=== PATIENT | male | born 1955 | race Caucasian/White ===

== ENCOUNTER 2016-08-08 07:58 | Day surgery (SDC) | payer MEDICARE, OTHER ==
[~2016-08-08 07:58] MED LIST: LACTATED RINGERS 1,000 ML IV ONE
[2016-08-08] MEDS ORDERED: LIDOCAINE-PF 2% 10 ML AMP SUBQ ONE (09:45)
[2016-08-08] MEDS ORDERED: PROPOFOL 200 MG/20 ML VIAL IVP ONE (09:45)
== END 2016-08-08 07:59 | disposition home or self-care (01) ==
PROC: 0DJD8ZZ Inspection of Lower Intestinal Tract, Via Natural or Artificial Opening Endoscopic (ICD-10-PCS; principal; 2016-08-08 07:30)
DX: Z12.11 Encounter for screening for malignant neoplasm of colon (principal); Z86.010 Personal history of colon polyps; K64.8 Other hemorrhoids; I10 Essential (primary) hypertension; G47.30 Sleep apnea, unspecified; G62.9 Polyneuropathy, unspecified; Z98.1 Arthrodesis status; F17.210 Nicotine dependence, cigarettes, uncomplicated; K21.0 Gastro-esophageal reflux disease with esophagitis; E78.2 Mixed hyperlipidemia; G47.33 Obstructive sleep apnea (adult) (pediatric); I70.209 Unspecified atherosclerosis of native arteries of extremities, unspecified extremity; J44.9 Chronic obstructive pulmonary disease, unspecified; Z79.82 Long term (current) use of aspirin; Z88.5 Allergy status to narcotic agent; Z83.3 Family history of diabetes mellitus
CPT/HCPCS: G0105; J7120

== ENCOUNTER 2016-11-08 00:11 | Emergency (ER) | payer MEDICARE, OTHER ==
[2016-11-08 00:31] VITALS: BP 151/84
--- NOTE | 2016-11-08 01:52 | XRAY Preliminary Report ---
Exam: XR Foot 3 View LT IMPRESSION: Old soft tissue swelling without evident acute displaced fracture. [facility] SITE ID: [id number]
--- NOTE | 2016-11-08 01:55 | XRAY Report ---
EXAM: LEFT FOOT RADIOGRAPHY EXAM DATE: 11/08/2016 01:18 AM. CLINICAL HISTORY: Dropped a shelf on 1st digit at 10 PM. Great toe pain COMPARISON: None. TECHNIQUE: 3 views. FINDINGS: Bones: No acute displaced fracture or definite suspicious bony lesion. Large retrocalcaneal enthesoph yte. Joints: Severe first MTP degenerative change. There is also severe degenerative change of the fifth P IP joint. Soft Tissues: Mild soft tissue swelling. IMPRESSION: Old soft tissue swelling without evident acute displaced fracture. [facility] Referring Provider Line: [phone] SITE ID: [id number]
--- NOTE | 2016-11-08 02:37 | ED Physician Documentation ---
PD HPI LOWER EXT INJURY - Stated complaint Stated Complaint: L FOOT PX - Chief complaint Chief Complaint: Ext Problem - History obtained from History obtained from: Patient, Family - History of Present Illness PD HPI LOW EXT INJURY LOCATION: Left Type of injury: Blunt / blow Where injury occurred: Home Timing - onset: How many hours ago (1) Timing - details: Abrupt onset Improved by: Immobilization Worsened by: Moving, Palpating Associated symptoms: Swelling Similar symptoms before: Has not had sx before Recently seen: Not recently seen - Additional information Additional information: Patient is a 60 year old male who is presenting to the emergency department for foot pain. Patient states that he dropped an empty drawer on his foot. he states that the corner hit him just on the large toe. Patient denies any other trauma. Review of Systems Constitutional: denies: Fever, Chills Ears: denies: Ear pain Nose: denies: Rhinorrhea / runny nose, Congestion Throat: denies: Dental pain / toothache Cardiac: denies: Chest pain / pressure GI: denies: Nausea, Vomiting Musculoskeletal: reports: Extremity pain, Joint pain, Extremity swelling, Joint swelling Neurologic: denies: Generalized weakness, Focal weakness, Numbness Immunocompromised: denies: Immunocompromised PD PAST MEDICAL HISTORY - Past Medical History Past Medical History: Yes Cardiovascular: Hypertension, High cholesterol, Peripheral Vascular Disease Respiratory: COPD, Emphysema, Sleep apnea, CPAP use Neuro: Peripheral neuropathy Endocrine/Autoimmune: None GI: GERD, Colon polyps, Diverticulitis : Benign prostate hypertrophy HEENT: Chronic vision loss Psych: None Musculoskeletal: Chronic back pain Derm: None - Past Surgical History Past Surgical History: Yes General: Colonoscopy Ortho: Carpal Tunnel surgery, Spine surgery Cardiovascular: Fempop bypass - Present Medications Home Medications: Ambulatory Orders Medication Instructions Recorded Confirmed Allopurinol [Zyloprim] 100 mg PO DAILY PRN 09/05/12 07/29/16 Lisinopril/Hydrochlorothiazide 1 each PO DAILY 09/05/12 07/29/16 [Lisinopril-Hctz 20-25 mg Tab] Multivitamin [Multivitamins] 1 each PO DAILY 09/05/12 08/08/16 Omeprazole [Prilosec] 20 mg PO DAILY 09/05/12 07/29/16 Pregabalin [Lyrica] 100 mg PO TID 09/05/12 08/08/16 Simvastatin [Zocor] 20 mg PO HS 09/05/12 08/08/16 Albuterol [Proventil Hfa] 1 puffs INH QID 09/23/12 07/29/16 Cyclobenzaprine [Flexeril] 20 mg PO TID PRN 09/23/12 07/29/16 Mupirocin [Bactroban] 22 gm TP DAILY 09/23/12 07/29/16 Tadalafil [Cialis] 20 mg PO PRN PRN 09/23/12 07/29/16 Oxycodone HCl/Acetaminophen 1 - 2 each PO Q6H PRN #15 tablet 05/21/14 07/29/16 [Percocet 5-325 mg Tablet] oxyCODONE [Roxicodone] 1 - 2 tab PO QID PRN 05/21/14 07/29/16 Aspirin [Aspirin EC] 81 mg PO DAILY 07/29/16 07/29/16 Diazepam 5 mg PO DAILY PRN 07/29/16 07/29/16 Hydrocodone/Acetaminophen 1 each PO DAILY 07/29/16 07/29/16 [Hydrocodon-Acetaminoph 7.5-325] Tramadol HCl 50 mg PO DAILY PRN 07/29/16 07/29/16 - Allergies Allergies/Adverse Reactions: Allergies Allergy/AdvReac Type Severity Reaction Status Date / Time codeine [Codeine] Allergy Intermediate Rash Verified 11/08/16 00:31 gabapentin Allergy Intermediate Rash Verified 11/08/16 00:31 - Social History Does the pt smoke?: Yes Smoking Status: Current every day smoker Does the pt drink ETOH?: Yes Does the pt have substance abuse?: No - Immunizations Immunizations are current?: Yes - POLST Patient has POLST: No PD ED PE NORMAL - General General: Alert and oriented X 3, No acute distress - HEENT HEENT: Atraumatic, PERRL - Neck Neck: Supple, no meningeal sign - Cardiac Cardiac: RRR, No murmur - Abdomen Abdomen: Soft - Derm Derm: Normal color, Warm and dry - Neuro Neuro: Alert and oriented X 3, No motor deficit, No sensory deficit, Normal speech - Psych Psych: Normal affect PD ED PE EXPANDED - Extremities Extremities: Right toe(s) Results - Vitals Vitals: Vital Signs - 24 hr 11/08/16 00:29 Temperature 36.5 C Heart Rate 97 Respiratory 17 Rate Blood Pressure 151/84 H O2 Saturation 98 Oxygen O2 Source Room air - Rads (name of study) x-ray foot Radiology: Final report received (no acute fracture or dislocation) PD MEDICAL DECISION MAKING - ED course Complexity details: reviewed old records, reviewed results, re-evaluated patient , d/w patient ED course: Patient was seen and examined at bedside. Patient was sent for imaging. when patient returned the films were reviewed. there was no acute fracture or dislocation. Patient was placed in a hard soled shoe and was stable for discharge with outpatient follow up. Departure - Departure Disposition: Home, Self Care Clinical Impression: Contusion of left foot Condition: Good Instructions: ED Contusion Lower Ext Follow-Up: primary,care provider [Other] - As Needed Comments: Your diagnostics today were within normal limits. there is no acute fracture or dislocation. You should take nsaid or tylenol for pain and ice the area at least 4 times a day. You can return to the emergency department at any time for new, worsening or uncontrollable symptoms. Discharge Date/Time: 11/08/16 02:45
== END 2016-11-08 02:45 | disposition home or self-care (01) ==
LOC: ED 00:11
DX: S90.32XA Contusion of left foot, initial encounter (principal); W22.8XXA Striking against or struck by other objects, initial encounter; Y92.019 Unspecified place in single-family (private) house as the place of occurrence of the external cause; I10 Essential (primary) hypertension; E78.00 Pure hypercholesterolemia, unspecified; I73.9 Peripheral vascular disease, unspecified; J44.9 Chronic obstructive pulmonary disease, unspecified; G47.30 Sleep apnea, unspecified; G62.9 Polyneuropathy, unspecified; K21.9 Gastro-esophageal reflux disease without esophagitis; N40.0 Benign prostatic hyperplasia without lower urinary tract symptoms; Z86.010 Personal history of colon polyps; F17.200 Nicotine dependence, unspecified, uncomplicated
CPT/HCPCS: 99283

== ENCOUNTER 2017-07-28 13:56 | Outpatient (CLI) | payer MEDICARE, OTHER | END 2017-07-28 13:57 | disposition home or self-care (01) | LOC: SC 13:56 | PROVIDERS: ATTEND Internal Medicine Pulmonary Disease | DX: G47.33 Obstructive sleep apnea (adult) (pediatric) (principal) | CPT/HCPCS: 99203; G0463; 99212 ==

== ENCOUNTER 2017-09-23 10:53 | Outpatient (CLI) | payer MEDICARE, OTHER ==
--- NOTE | 2017-09-24 15:14 | XRAY Report ---
Procedure Date: 09/23/2017 Accession Number: [id number] / [id number] Procedure: XR - Knee 3 View RT CPT Code: FULL RESULT: EXAM: RIGHT KNEE RADIOGRAPHY EXAM DATE: 09/23/2017 11:33 AM. CLINICAL HISTORY: Knee pain COMPARISON: None. TECHNIQUE: 3 views. FINDINGS: Bones: No fracture or focal bony lesion. Joints: No evidence of dislocation. There are small patellofemoral compartment marginal osteophytes. No evidence of significant joint effusion. Soft Tissues: No unexpected soft tissue findings. IMPRESSION: No fracture, dislocation, or significant degenerative disease [facility]
== END 2017-09-23 10:54 | disposition home or self-care (01) ==
LOC: DI 10:53
PROVIDERS: ATTEND Family Medicine
DX: M25.561 Pain in right knee (principal)

== ENCOUNTER 2017-10-05 09:20 | Outpatient (CLI) | payer MEDICARE, OTHER | END 2017-10-05 09:21 | disposition home or self-care (01) | LOC: SC 09:20 | PROVIDERS: ATTEND Internal Medicine Pulmonary Disease | DX: G47.33 Obstructive sleep apnea (adult) (pediatric) (principal) | CPT/HCPCS: 99213; G0463; 99212 ==

== ENCOUNTER 2018-11-24 15:56 | Outpatient (CLI) | payer MEDICARE, OTHER ==
[2018-11-24 16:45] VITALS: BP 134/70
--- NOTE | 2018-11-24 16:45 | SLEEP CARE CONSULTATION ---
Information from patient questionnaire entered by Ivania Villalpando. I have reviewed and concur with the information entered by Ivania Villalpando. This document represents the service I personally performed and the decisions made by me, Katy Dasilva, RN, MSN, PHOTOENGRAVING PHOTOGRAPHER. History of Present Illness Previous diagnosis: Severe, Obstructive Sleep Apnea-Hypopnea Syndrome AHI: 30.7 Reason for CPAP/BiPAP follow up: annual Equipment type: CPAP Equipment obtained from: [employer] (having difficulty getting supplies / so has researched other companies to use and chose [place]) Mask style: Nasal Mask brand: Resmed Backup mask available: Yes Last cushion change: 3 months ago due to difficulty getting supplies CPAP Compliance Data - Data Reviewed with Patient Average duration of nightly device use: 7.95 Compliance rate %: 98 (180 days) Current pressure setting (cmH2O): 5-8 Average residual AHI: 0.9 Average large leak: 7.1 liters a minute Subjective Missed days of use due to: reports: other (falling asleep without) Patient concerns: reports: air blowing in eyes (rare), nasal congestion, other (ear pressure about 1-2 times a week and generally occurs when congested. ). denies: aerophagia, mask discomfort, mask leak noise, condensation in mask/hose (intermittent if humidity not accurate for weather), dry mouth, nose, throat, epistaxis Observed to snore while using device: No On therapy, patient: reports: sleeping better, awakening more refreshed, being more awake and alert during the day, more rested overall. denies: drowsiness while driving Initial [place] Sleepiness Scale score: 10 Current [place] Sleepiness Scale score: 7 Allergies and Home Medications Known drug allergies: Yes (codiene - rash; gabapentin - hives + very high temperature) Home medication list reviewed: Yes Allergy and home medication list: Hydrochlorothiazide-Lisinopril 25-20mg tab one daily atorvastatin 20mg tab one daily Omeprazole DR 20mg cap one daily EpiPen Micah 0.3mg injectable kit Use as directed Cialis 20mg tab PRN [place] 325-7.5mg tab one every 8 hours PRN Indomethacin 50mg cap on three times daily Proventil HFA 108 (90 base) mcg/act Inhale one-two puffs daily Lyrica 100mg cap twice times daily Diazepam 5mg tab one-two every 8 hours PRN Cyclobenzaprine 10mg tab one every 8 hours PRN Tramadol HCI 50mg tab one every 8 hours PRN Percocet 5mg tab one PRN Review of Systems Review of systems same as previous: Yes Physical Exam Blood Pressure: 134/70 Cuff size: long Heart Rate: 82 O2 Saturation: 98 Height: 5 ft 11 in Weight (kg): 120.656 kg Body Mass Index: 37.0 BMI Classification: Class 2 Impression and Plan 1. Obstructive Sleep Apnea-Hypopnea Syndrome, severe, with good treatment compliance and good apnea control. On CPAP therapy, the patient has better sleep quality and is more rested overall. For his intermittent ear pressure a couple times a month when has nasal congestion, I will reduce autoCPAP pressure to 5-7cmH20. He is to contact me if any pressure discomfort. If he continues weight loss, his CPAP pressure may need to be reduced further if significant weight loss. Patient aware to contact this office. For his supply concerns, I will make a DW0 prescription to transfer to [facility]. If continued supply problems, he was notified he can transfer again. Patient's apnea severity and rationale for treatment to reduce apnea, improve sleep quality and reduce cardiovascular and cerebrovascular events was reviewed. I also reviewed the benefit of consistent device use of CPAP for hypertension and pain management. He has noted benefit to pain management and requires less pain pills since CPAP use. He was also praised for smoking cessation progress and discussed benefits to hypertension and overall health. * Transfer to [facility] * Change CPAP pressure to 5-7 cmH2O - done in office * Notify me if snoring with mask or feeling that the pressure is too much or too little * Attempt to lose weight * Continue to work on smoking cessation. * Return for follow up in 1 year, or sooner if concerns arise I spent 100% of this 30 minute visit face to face with the patient with greater than 50% of this was spent time counseling the patient and coordination of care.
== END 2018-11-24 15:57 | disposition home or self-care (01) ==
LOC: SC 15:56
PROVIDERS: ATTEND Nurse Practitioner Family
DX: G47.33 Obstructive sleep apnea (adult) (pediatric) (principal)
CPT/HCPCS: 99214; G0463; 99212

== ENCOUNTER 2019-01-24 23:22 | Emergency (ER) | payer MEDICARE, OTHER ==
[2019-01-24 23:55] LABS: BASOPHILS % (AUTO) 0.5 %; EOSINOPHILS # (AUTO) 0.1 10^3/uL (0.0-0.7); EOSINOPHILS % (AUTO) 1.2 %; HGB - HEMOGLOBIN 13.8 g/dL (14.0-18.0); LYMPHOCYTES # (AUTO) 2.7 10^3/uL (1.5-3.5); MEAN CORPUSCULAR HEMOGLOBIN 29.3 pg (27.0-31.0); MEAN CORPUSCULAR HGB CONC 33.4 g/dL (32.0-36.0); MEAN CORPUSCULAR VOLUME 87.7 fL (80.0-94.0); MEAN PLATELET VOLUME 10.7 fL (7.4-11.4); MONOCYTES # (AUTO) 0.7 10^3/uL (0.0-1.0); MONOCYTES % (AUTO) 9.4 %; NEUTROPHILS # (AUTO) 3.9 10^3/uL (1.5-6.6); NEUTROPHILS % (AUTO) 52.5 %; PLT - PLATELET COUNT 162 10^3/uL (130-450); RED BLOOD COUNT 4.71 10^6/uL (4.70-6.10); RED CELL DISTRIBUTION WIDTH 13.5 % (12.0-15.0); WHITE BLOOD COUNT 7.4 x10^3/uL (4.8-10.8)
[2019-01-25 00:02] LABS: ALBUMIN 4.6 g/dL (3.2-5.5); ALBUMIN/GLOBULIN RATIO 1.6 (1.0-2.2); BILIRUBIN,TOTAL 0.6 mg/dL (0.2-1.0); CALCIUM 9.4 mg/dL (8.5-10.3); CREATININE 0.9 mg/dL (0.6-1.2); TOTAL PROTEIN 7.5 g/dL (6.7-8.2)
--- NOTE | 2019-01-25 00:07 | ED Physician Documentation ---
PD HPI CHEST PAIN - Stated complaint Stated Complaint: STROKE LIKE SYMP - Chief complaint Chief Complaint: Cardiac - History obtained from History obtained from: Patient - History of Present Illness Timing - onset: How many hours ago (3) Timing - onset during: Rest Timing - duration: Hours (3) Timing - details: Abrupt onset, Still present Quality: Pressure, Tightness. No: Sharp Location: Substernal, Epigastric Radiation: Neck Improved by: No: Rest Worsened by: No: Exertion, Inspiration Associated symptoms: Nausea, Feeling faint / dizzy. No: Shortness of air, Palpitations Similar symptoms before: No diagnosis (had similar symptoms the past several days, nonexertional, lasting minutes to half hour or so.) Recently seen: Not recently seen Review of Systems Constitutional: denies: Fever, Chills Nose: denies: Rhinorrhea / runny nose, Congestion Throat: denies: Sore throat Cardiac: reports: Chest pain / pressure. denies: Palpitations, Pedal edema, Calf pain Respiratory: denies: Dyspnea, Cough GI: denies: Abdominal Pain, Nausea, Vomiting, Diarrhea Musculoskeletal: denies: Extremity swelling PD PAST MEDICAL HISTORY - Past Medical History Past Medical History: Yes Cardiovascular: Hypertension, High cholesterol, Peripheral Vascular Disease Respiratory: COPD, Emphysema, Sleep apnea, CPAP use Neuro: None Endocrine/Autoimmune: None GI: GERD, Colon polyps, Diverticulitis : Benign prostate hypertrophy HEENT: Chronic vision loss Psych: None Musculoskeletal: Chronic back pain Derm: None - Past Surgical History Past Surgical History: Yes General: Colonoscopy Ortho: Carpal Tunnel surgery, Spine surgery Cardiovascular: Fempop bypass - Present Medications Home Medications: Ambulatory Orders Medication Instructions Recorded Confirmed Allopurinol [Zyloprim] 100 mg PO DAILY PRN 09/05/12 07/29/16 Lisinopril/Hydrochlorothiazide 1 each PO DAILY 09/05/12 07/29/16 [Lisinopril-Hctz 20-25 mg Tab] Multivitamin [Multivitamins] 1 each PO DAILY 09/05/12 08/08/16 Omeprazole [Prilosec] 20 mg PO DAILY 09/05/12 07/29/16 Pregabalin [Lyrica] 100 mg PO TID 09/05/12 08/08/16 Simvastatin [Zocor] 20 mg PO HS 09/05/12 08/08/16 Albuterol [Proventil Hfa] 1 puffs INH QID 09/23/12 07/29/16 Cyclobenzaprine [Flexeril] 20 mg PO TID PRN 09/23/12 07/29/16 Mupirocin [Bactroban] 22 gm TP DAILY 09/23/12 07/29/16 Tadalafil [Cialis] 20 mg PO PRN PRN 09/23/12 07/29/16 Oxycodone HCl/Acetaminophen 1 - 2 each PO Q6H PRN #15 tablet 05/21/14 07/29/16 [Percocet 5-325 mg Tablet] oxyCODONE [Roxicodone] 1 - 2 tab PO QID PRN 05/21/14 07/29/16 Aspirin [Aspirin EC] 81 mg PO DAILY 07/29/16 07/29/16 Hydrocodone/Acetaminophen 1 each PO DAILY 07/29/16 07/29/16 [Hydrocodon-Acetaminoph 7.5-325] Tramadol HCl 50 mg PO DAILY PRN 07/29/16 07/29/16 diazePAM [Diazepam] 5 mg PO DAILY PRN 07/29/16 07/29/16 Famotidine 20 mg PO DAILY #15 tablet 01/25/19 Lidocaine Viscous 2% [Xylocaine 5 ml PO Q4H PRN #100 ml 01/25/19 Viscous 2%] - Allergies Allergies/Adverse Reactions: Allergies Allergy/AdvReac Type Severity Reaction Status Date / Time codeine [Codeine] Allergy Intermediate Rash Verified 11/08/16 00:31 gabapentin Allergy Intermediate Rash Verified 11/08/16 00:31 - Social History Does the pt smoke?: Yes Smoking Status: Current every day smoker Does the pt drink ETOH?: Yes Does the pt have substance abuse?: No - Immunizations Immunizations are current?: Yes - POLST Patient has POLST: No PD ED PE NORMAL - Vitals Vital signs reviewed: Yes - General General: Alert and oriented X 3, No acute distress, Well developed/nourished - HEENT HEENT: Moist mucous membranes, Pharynx benign - Neck Neck: Supple, no meningeal sign, No adenopathy - Cardiac Cardiac: RRR, No murmur - Respiratory Respiratory: Clear bilaterally - Abdomen Abdomen: Normal bowel sounds, Soft, Non tender - Derm Derm: Normal color, Warm and dry - Extremities Extremities: Normal ROM s pain, No edema, No calf tenderness / cord - Neuro Neuro: Alert and oriented X 3, No motor deficit, Normal speech Eye Opening: Spontaneous Motor: Obeys Commands Verbal: Oriented GCS Score: 15 Results - Vitals Vitals: Oxygen O2 Source Room air - EKG (time done) 23:28 Rate: Rate (enter#) (99) Rhythm: NSR, Other (artifact present) [place]: Normal Intervals: Normal PA QRS: Normal Ischemia: Normal ST segments. No: ST elevation c/w ischemia, ST depression - Labs Labs: Laboratory Tests 01/24/19 01/24/19 01/24/19 23:38 23:38 23:38 WBC 7.4 RBC 4.71 Hgb 13.8 L Hct 41.3 L MCV 87.7 MCH 29.3 MCHC 33.4 RDW 13.5 Plt Count 162 MPV 10.7 Neut # (Auto) 3.9 Lymph # (Auto) 2.7 [place] # (Auto) 0.7 Eos # (Auto) 0.1 Baso # (Auto) 0.0 Absolute Nucleated RBC 0.00 Nucleated RBC % 0.0 Sodium 146 H Potassium 3.6 Chloride 107 Carbon Dioxide 27 Anion Gap 12.0 BUN 28 H Creatinine 0.9 Estimated GFR (MDRD) 86 L Glucose 94 Calcium 9.4 Total Bilirubin 0.6 AST 21 ALT 26 Alkaline Phosphatase 33 L Troponin I High Sens 18.6 Total Protein 7.5 Albumin 4.6 Globulin 2.9 Albumin/Globulin Ratio 1.6 Lipase 37 - Rads (name of study) chest xray Radiology: Prelim report reviewed, See rad report (no acute process) PD MEDICAL DECISION MAKING - ED course Complexity details: reviewed results (normal ECG and troponin, CXR. ), re- evaluated patient (improved with GI cocktail.), considered differential, d/w patient Departure - Departure Disposition: 01 Home, Self Care Clinical Impression: Chest pressure, Esophagitis Condition: Stable Record reviewed to determine appropriate education?: Yes Instructions: ED GERD Follow-Up: Ash Holman MD [Primary Care Provider] - Prescriptions: Famotidine 20 mg PO DAILY #15 tablet Lidocaine Viscous 2% [Xylocaine Viscous 2%] 5 ml PO Q4H PRN #100 ml PRN Reason: Pain Comments: No signs of heart attack or heart failure or lung problems based on your EKG chest x-ray and blood tests. Presume this is esophageal irritation related to reflux and acid. Continue your omeprazole. Supplement that with famotidine daily for the next week or 2. Add antacids as needed and you can add lidocaine 1 teaspoon at a time to the antacids if needed for heartburn. Follow-up with your primary care if regular symptoms over the next several days to week. Discharge Date/Time: 01/25/19 02:09
[2019-01-25] MEDS ORDERED: ONDANSETRON 4 MG/2 ML VIAL IVP STA (00:28)
[2019-01-25] MEDS ORDERED: MAG HYDROX/AL HYDROX/SIMETH 30 ML UDC PO STA (00:28)
[2019-01-25] MEDS ORDERED: LIDOCAINE VISCOUS 2% 15 ML UDC MM STA (00:28)
--- NOTE | 2019-01-25 00:55 | XRAY Report ---
Reason: chest pain Procedure Date: 01/25/2019 Accession Number: [id number] / [id number] Procedure: XR - Chest 1 View X-Ray CPT Code: 57561 FULL RESULT: EXAM: CHEST RADIOGRAPHY EXAM DATE: 01/25/2019 12:29 AM. CLINICAL HISTORY: Chest pain. COMPARISON: XR CHEST PA AND LAT 12/28/2009 9:29 AM. TECHNIQUE: 1 view. FINDINGS: Lungs/Pleura: Mild interstitial and airspace opacities throughout both lungs. No pleural effusion. No pneumothorax. Mediastinum: Within exam limitations, the cardiomediastinal contour is normal. Other: Anterior fixation with plate and screws at the cervical thoracic junction. IMPRESSION: Pulmonary findings which likely reflect mild pulmonary edema. [facility]
[2019-01-25 01:59] VITALS: BP 132/87
== END 2019-01-25 02:09 | disposition home or self-care (01) ==
LOC: ED 23:22
DX: K21.0 Gastro-esophageal reflux disease with esophagitis (principal); R07.89 Other chest pain; I10 Essential (primary) hypertension; Z79.82 Long term (current) use of aspirin; F17.200 Nicotine dependence, unspecified, uncomplicated
CPT/HCPCS: 36415; 71045; 80053; 83690; 84484; 85025; 93005; 99284; A9270

== ENCOUNTER 2019-08-26 14:48 | Emergency (ER) | payer MEDICARE, OTHER ==
[2019-08-26] MEDS ORDERED: ASPIRIN CHEW 81 MG TABLET PO STA (15:27)
--- NOTE | 2019-08-26 15:28 | ED Physician Documentation ---
PD HPI CHEST PAIN - Stated complaint Stated Complaint: HEART RACING - Chief complaint Chief Complaint: Cardiac - History obtained from History obtained from: Patient (63-year-old gentleman with history of peripheral vascular disease and emphysema but no history of heart disease that we know of presents with substernal chest throbbing going with his heart rate that is been going on for about 3 or 4 hours now. He was briefly nauseous and sweaty at the outset. He has had similar symptoms before that were attributed to reflux he tried some Maalox which was ineffective. The pain does not radiate. He is not any more short of breath than normal. Note made that he had a Cialis maybe 48 hours ago) Review of Systems Ten Systems: 10 systems reviewed and negative Constitutional: denies: Fever, Chills Throat: denies: Dental pain / toothache, Sore throat Cardiac: reports: Chest pain / pressure. denies: Palpitations, Pedal edema, Calf pain Respiratory: denies: Dyspnea PD PAST MEDICAL HISTORY - Past Medical History Past Medical History: Yes Cardiovascular: Hypertension, High cholesterol, Peripheral Vascular Disease Respiratory: COPD, Emphysema, Sleep apnea, CPAP use Neuro: None Endocrine/Autoimmune: None GI: GERD, Colon polyps, Diverticulitis : Benign prostate hypertrophy HEENT: Chronic vision loss Psych: None Musculoskeletal: Chronic back pain Derm: None - Past Surgical History Past Surgical History: Yes General: Colonoscopy Ortho: Carpal Tunnel surgery, Spine surgery Cardiovascular: Fempop bypass - Present Medications Home Medications: Ambulatory Orders Medication Instructions Recorded Confirmed Lisinopril/Hydrochlorothiazide 1 each PO DAILY 09/05/12 07/29/16 [Lisinopril-Hctz 20-25 mg Tab] Multivitamin [Multivitamins] 1 each PO DAILY 09/05/12 08/08/16 Omeprazole [Prilosec] 20 mg PO DAILY 09/05/12 07/29/16 Pregabalin [Lyrica] 100 mg PO TID 09/05/12 08/08/16 Simvastatin [Zocor] 20 mg PO HS 09/05/12 08/08/16 allopurinoL [Zyloprim] 100 mg PO DAILY PRN 09/05/12 07/29/16 Albuterol [Proventil Hfa] 1 puffs INH QID 09/23/12 07/29/16 Cyclobenzaprine [Flexeril] 20 mg PO TID PRN 09/23/12 07/29/16 Mupirocin [Bactroban] 22 gm TP DAILY 09/23/12 07/29/16 Tadalafil [Cialis] 20 mg PO PRN PRN 09/23/12 07/29/16 Oxycodone HCl/Acetaminophen 1 - 2 each PO Q6H PRN #15 tablet 05/21/14 07/29/16 [Percocet 5-325 mg Tablet] oxyCODONE [Roxicodone] 1 - 2 tab PO QID PRN 05/21/14 07/29/16 Aspirin [Aspirin EC] 81 mg PO DAILY 07/29/16 07/29/16 Hydrocodone/Acetaminophen 1 each PO DAILY 07/29/16 07/29/16 [Hydrocodon-Acetaminoph 7.5-325] Tramadol HCl 50 mg PO DAILY PRN 07/29/16 07/29/16 diazePAM [Diazepam] 5 mg PO DAILY PRN 07/29/16 07/29/16 Famotidine 20 mg PO DAILY #15 tablet 01/25/19 Lidocaine Viscous 2% [Xylocaine 5 ml PO Q4H PRN #100 ml 01/25/19 Viscous 2%] - Allergies Allergies/Adverse Reactions: Allergies Allergy/AdvReac Type Severity Reaction Status Date / Time codeine [Codeine] Allergy Intermediate Rash Verified 11/08/16 00:31 gabapentin Allergy Intermediate Rash Verified 11/08/16 00:31 - Social History Does the pt smoke?: Yes Smoking Status: Current every day smoker Does the pt drink ETOH?: Yes Does the pt have substance abuse?: No - Immunizations Immunizations are current?: Yes - POLST Patient has POLST: No PD ED PE NORMAL - Vitals Vital signs reviewed: Yes - General General: Alert and oriented X 3, No acute distress - HEENT HEENT: PERRL, EOMI - Neck Neck: Supple, no meningeal sign, No bony TTP - Cardiac Cardiac: RRR, No murmur - Respiratory Respiratory: No respiratory distress, Clear bilaterally - Abdomen Abdomen: Non tender - Extremities Extremities: No calf tenderness / cord - Psych Psych: Normal mood, Normal affect Results - Vitals Vitals: Vital Signs - 24 hr 08/26/19 08/26/19 08/26/19 14:53 15:15 15:30 Temperature 36.4 C L Heart Rate 92 90 85 Respiratory 17 16 12 Rate Blood Pressure 140/81 H 157/91 H 132/77 H O2 Saturation 97 98 97 08/26/19 16:00 Temperature Heart Rate 77 Respiratory 16 Rate Blood Pressure 133/77 H O2 Saturation 97 Oxygen O2 Source Room air - EKG (time done) 1506 Rate: Rate (enter#) (92) Rhythm: NSR [place]: Normal Intervals: Normal NM, Prolonged QT Ischemia: Non specific changes (There is subtle lateral ST depression, this is compared to the last EKG in the chart dated January 242018, he had a similar morphology then, it may be slightly worse today.) Computer interpretation: Agree with computer - Labs Labs: Laboratory Tests 08/26/19 08/26/19 08/26/19 15:27 15:27 15:27 WBC 8.9 RBC 4.66 L Hgb 13.9 L Hct 41.1 L MCV 88.2 MCH 29.8 MCHC 33.8 RDW 13.7 Plt Count 158 MPV 10.9 Neut # (Auto) 6.6 Lymph # (Auto) 1.6 [place] # (Auto) 0.5 Eos # (Auto) 0.1 Baso # (Auto) 0.0 Absolute Nucleated RBC 0.00 Nucleated RBC % 0.0 Sodium 140 Potassium 3.4 L Chloride 107 Carbon Dioxide 25 Anion Gap 8.0 BUN 17 Creatinine 0.9 Estimated GFR (MDRD) 86 L Glucose 130 H Calcium 9.3 Total Bilirubin 0.6 AST 27 ALT 26 Alkaline Phosphatase 35 L Troponin I High Sens 244.0 H* Total Protein 7.4 Albumin 4.2 Globulin 3.2 Albumin/Globulin Ratio 1.3 Lipase 32 PD MEDICAL DECISION MAKING - ED course ED course: 63-year-old gentleman with history of extensive peripheral vascular disease presents with somewhat atypical chest pain, an EKG that is very mildly ischemic with subtle lateral ST depressions but no ST elevation. He was administered aspirin. Nitroglycerin was held given that he has had Cialis within the last 48 hours or so. Troponin fairly positive, started on heparin and metoprolol. Call to [place] for transfer as that is where his vascular surgeon was in the past. Accepted by Dr Venkata Youssef, hospitalist at [facility] at 1627 Departure - Departure Disposition: 02 Transfer Acute Care Hosp Clinical Impression: NSTEMI (non-ST elevated myocardial infarction) Condition: Serious
[2019-08-26 15:31] LABS: BASOPHILS % (AUTO) 0.5 %; EOSINOPHILS # (AUTO) 0.1 10^3/uL (0.0-0.7); EOSINOPHILS % (AUTO) 0.6 %; HGB - HEMOGLOBIN 13.9 g/dL (14.0-18.0); LYMPHOCYTES # (AUTO) 1.6 10^3/uL (1.5-3.5); LYMPHOCYTES % (AUTO) 18.5 %; MEAN CORPUSCULAR HEMOGLOBIN 29.8 pg (27.0-31.0); MEAN CORPUSCULAR HGB CONC 33.8 g/dL (32.0-36.0); MEAN CORPUSCULAR VOLUME 88.2 fL (80.0-94.0); MEAN PLATELET VOLUME 10.9 fL (7.4-11.4); MONOCYTES # (AUTO) 0.5 10^3/uL (0.0-1.0); MONOCYTES % (AUTO) 5.7 %; NEUTROPHILS # (AUTO) 6.6 10^3/uL (1.5-6.6); NEUTROPHILS % (AUTO) 74.2 %; PLT - PLATELET COUNT 158 10^3/uL (130-450); RED BLOOD COUNT 4.66 10^6/uL (4.70-6.10); RED CELL DISTRIBUTION WIDTH 13.7 % (12.0-15.0); WHITE BLOOD COUNT 8.9 x10^3/uL (4.8-10.8)
[2019-08-26 15:46] LABS: ALBUMIN 4.2 g/dL (3.2-5.5); ALBUMIN/GLOBULIN RATIO 1.3 (1.0-2.2); BILIRUBIN,TOTAL 0.6 mg/dL (0.2-1.0); CALCIUM 9.3 mg/dL (8.5-10.3); CREATININE 0.9 mg/dL (0.6-1.2); TOTAL PROTEIN 7.4 g/dL (6.7-8.2)
--- NOTE | 2019-08-26 15:48 | XRAY Report ---
Reason: chest pain Procedure Date: 08/26/2019 Accession Number: [id number] / [id number] Procedure: XR - Chest 1 View X-Ray CPT Code: 87650 Final Report FULL RESULT: EXAM: CHEST RADIOGRAPHY EXAM DATE: 08/26/2019 03:21 PM. CLINICAL HISTORY: Chest pain. COMPARISON: CHEST 1 VIEW 01/25/2019 12:29 AM. TECHNIQUE: 1 view. FINDINGS: Lungs/Pleura: No focal opacities evident. No pleural effusion. No pneumothorax. Mediastinum: Within exam limitations, the cardiomediastinal contour is normal. Other: Fusion hardware seen projected over lower cervical spine. IMPRESSION: No acute cardiopulmonary process. RADIA
[2019-08-26] MEDS ORDERED: HEPARIN 25000UNITS/500ML (D5W) 25,000 UNIT/500 ML BAG IV STA (16:04)
[2019-08-26] MEDS ORDERED: HEPARIN 5,000 UNIT/ML VIAL IVP STA (16:04)
[2019-08-26] MEDS ORDERED: METOPROLOL TARTRATE 50 MG TABLET PO STA (16:04)
[2019-08-26 17:29] VITALS: BP 130/80
== END 2019-08-26 17:36 | disposition short-term general hospital (02) ==
LOC: ED 14:48
DX: I21.4 Non-ST elevation (NSTEMI) myocardial infarction (principal); I45.81 Long QT syndrome; I73.9 Peripheral vascular disease, unspecified; I10 Essential (primary) hypertension; J43.9 Emphysema, unspecified; F17.200 Nicotine dependence, unspecified, uncomplicated
CPT/HCPCS: 36415; 71045; 80053; 83690; 84484; 85025; 93005; 96374; 96375; 99285; A9270

== ENCOUNTER 2019-08-26 17:26 | Outpatient (CLI) | payer MEDICARE, OTHER | END 2019-08-26 17:27 | disposition short-term general hospital (02) | LOC: EMS 17:26 | PROVIDERS: ATTEND Surgery | DX: R07.9 Chest pain, unspecified (principal) | CPT/HCPCS: A0425; A0426 ==

== ENCOUNTER 2020-01-17 10:28 | Outpatient (CLI) | payer MEDICARE, OTHER ==
--- NOTE | 2020-01-17 10:58 | SLEEP CARE CONSULTATION ---
Information from patient questionnaire entered by Ivania Villalpando. I have reviewed and concur with the information entered by Ivania Villalpando. This document represents the service I personally performed and the decisions made by me, Concepcion Lopez MD, [facility]. History of Present Illness Service Date and Time: 01/17/2020 1028 Previous diagnosis: Severe, Obstructive Sleep Apnea-Hypopnea Syndrome AHI: 30.7 (in 2012) Reason for follow up: annual (last seen 2019) Equipment type: CPAP Equipment obtained from: [employer] Mask style: Nasal Mask brand: Resmed Prior sleep studies: Yes Year and Where: 2013 - [facility] in [place] HPI additional information: HPI: Mr. Layton returned today for annual follow up of nasal CPAP therapy. He was diagnosed to have severe obstructive sleep apnea-hypopnea syndrome. The patient gets his supplies from [employer]. He wears a ResMed N20 nasal mask. He reports using the device nightly and all through the night. The compliance report shows usage in 178 nights out of the past 180 nights, averaging 6.8 hours a night. The > 4 hour compliance rate for the past 180 days is 96%. He complained of no particular problem with the device such as soreness on the face, dry nose, epistaxis, nasal congestion or headache. He thinks that the pressure of 5 - 7 cmH2O is comfortable. On the CPAP therapy he notices improvement in his sleep quality, and that he wakes up feeling fresher in the morning and more awake/alert during the day. The [place] Sleepiness Scale score 7. The average residual AHI is 0.6; and air leak, 10.2 L/min. The 90th percentile pressure is 7 cmH2O. CPAP Compliance Data - Data Reviewed with Patient Average duration of nightly device use: 6.9 Compliance rate %: 96 (180 days) Current pressure setting (cmH2O): 5-7 Average residual AHI: 0.6 Subjective Current pressure setting perceived as: comfortable Initial [place] Sleepiness Scale score: 10 (in 2018) Current [place] Sleepiness Scale score: 7 Allergies and Home Medications Drug allergies reviewed: Yes (codeine, gabapentin) Home medication list reviewed: Yes (losartan, chlorthalidone, Toprol, Plavix, Lyrica, Lipitor, omeprazole, allo) Review of Systems Review of systems same as previous: Yes Physical Exam Height: 6 ft Weight: 268 lb Body Mass Index: 36.3 BMI Classification: Obese Impression and Plan IMPRESSION: 1. Obstructive Sleep Apnea-Hypopnea Syndrome, severe, with the patient continuing to do well on nasal CPAP therapy. He has excellent compliance and significant clinical improvement. The current pressure appears effective and comfortable. Overall, she is very satisfied with treatment and plans to continue with it long-term. No adjustment is necessary today. PLAN: 1. Continue with autoCPAP set between 5 and 7 cmH2O. 2. Try to lose weight 3. Return in one year for follow up or earlier if there are any problems. Visit Type: In Office Time Spent with Patient (minutes): 15 Provider Statement: I spent 100% of the Face to Face Visit with the patient with greater than 50% spent counseling the patient and coordination of care.
== END 2020-01-17 10:29 | disposition home or self-care (01) ==
LOC: SC 10:28
PROVIDERS: ATTEND Internal Medicine Pulmonary Disease
DX: G47.33 Obstructive sleep apnea (adult) (pediatric) (principal); E66.9 Obesity, unspecified; Z68.36 Body mass index [BMI] 36.0-36.9, adult
CPT/HCPCS: 99213; G0463; 99212

== ENCOUNTER 2020-05-17 08:45 | Outpatient (CLI) | payer MEDICARE, OTHER ==
--- NOTE | 2020-05-17 13:27 | CT Report ---
PROCEDURE: Low Dose Lung Cancer Screen INDICATIONS: HISTORY OF SMOKING TECHNIQUE: Noncontrast low-dose 5 mm thick sections acquired from the pulmonary apices to the posterior costophr enic angles. 7 mm thick coronal and sagittal MIP reformats were then acquired. For radiation dose r eduction, the following was used: automated exposure control, adjustment of mA and/or kV according t o patient size. COMPARISON: None. FINDINGS: Image quality: Excellent. Lungs and pleura: 4 mm pleural-based solid nodule in posterior aspect of right upper lobe is seen se lauri 4 image 91. 4 mm solid nodule is also seen within oblique fissure on the left side series 4 imag e 157. 5 mm nodular thickening involving posterior pleura of left lower lobe is seen series 4 image 2 11. There is no acute airspace opacity. No pleural effusion or pneumothorax. Central and peripheral a irway is patent. Mediastinum: Heart size is normal. No pericardial effusion. No mediastinal adenopathy by size crit eria. Thoracic aorta and central pulmonary arteries are normal in size. Moderate amount of atheroscl erotic calcifications are noted in coronary vessels and thoracic aorta. Esophagus is normal in calibe r. No hiatal hernia. Bones and chest wall: No suspicious bony lesions. No vertebral body compression fractures. No axil cleo or supraclavicular adenopathy by size criteria. The thyroid is normal in size. Abdomen: Visualized upper abdomen solid organs and bowel loops appear normal in the absence of contr ast. Suggestion of tiny bilateral nonobstructing renal calculi versus vascular calcification is seen . No hydronephrosis. IMPRESSION: 1. Small nodule seen adjacent to posterior pleura of right upper lobe and left lower lobe as well as along oblique fissure measures up to 5 mm in size. 2. Moderate atherosclerotic disease. Lung RADS category: 2, benign findings. Low-dose CT chest follow-up in 12 month is recommended. Reviewed by: Vish Baxter MD on 05/17/2020 12:25 PM [place] Approved by: Vish Baxter MD on 05/17/2020 12:25 PM AKST Station ID: [id number]
== END 2020-05-17 08:46 | disposition home or self-care (01) ==
LOC: DI 08:45
PROVIDERS: ATTEND Family Medicine
DX: Z12.2 Encounter for screening for malignant neoplasm of respiratory organs (principal); R91.8 Other nonspecific abnormal finding of lung field; I25.10 Atherosclerotic heart disease of native coronary artery without angina pectoris; Z87.891 Personal history of nicotine dependence

== ENCOUNTER 2020-10-23 20:13 | Outpatient (CLI) | payer MEDICARE, OTHER ==
--- NOTE | 2020-10-24 08:48 | Ultrasound Report ---
PROCEDURE: Head or Neck Soft Tissue INDICATIONS: LOCALIZED SWELLING, MASS AND LUMP, NECK TECHNIQUE: Real-time scanning was performed of the thyroid gland, with image documentation. COMPARISON: None FINDINGS: Right: Thyroid lobe measures 5.5 x 2.2 x 3.0 cm, and is homogeneous in echotexture. Left: Thyroid lobe measures 3.3 x 1.5 x 1.6 cm, and is homogenous in echotexture. Isthmus: 5 mm thick. No discrete thyroid nodule is identified. Prominent lymph node is seen in inferior aspect of right parotid gland measures 2.4 x 1.4 x 1.6 cm an d 0.8 x 1.6 cm in size. Small and normal-appearing lymph nodes are noted adjacent to inferior aspect of left parotid gland as a comparison and measures up to 6 mm in size. IMPRESSION: 1. Asymmetrically enlarged right thyroid lobe. No discrete thyroid nodule is seen. 2. Possible enlarged lymph nodes involving inferior aspect of right parotid gland as described above, which could represent reactive inflammatory lymphadenopathy, sonographic follow-up is recommended. ACR TI-RADS definitions and recommendations: TI-RADS 1 (benign): 0 points. FNA not needed. TI-RADS 2 (not suspicious): 2 points. FNA not needed. TI-RADS 3 (mildly suspicious): 3 points. ? FNA if 2.5 cm or larger, follow up if 1.5 cm or larger (at 1, 3, and 5 years). TI-RADS 4 (moderately suspicious): 4-6 points. ? FNA if 1.5 cm or larger, follow up if 1 cm or larger (at 1, 2, 3, and 5 years). TI-RADS 5 (highly suspicious): 7 points or more. ? FNA if 1 cm or larger, follow up if 0.5 cm or larger (every year for 5 years). Reviewed by: Vish Baxter MD on 10/24/2020 8:47 AM PDT Approved by: Vish Baxter MD on 10/24/2020 8:47 AM PDT Station ID: [id number]
== END 2020-10-23 20:14 | disposition home or self-care (01) ==
LOC: DI 20:13
PROVIDERS: ATTEND Physician Assistant
DX: M54.2 Cervicalgia (principal); R59.1 Generalized enlarged lymph nodes; E04.9 Nontoxic goiter, unspecified

== ENCOUNTER 2020-11-09 10:23 | Outpatient (CLI) | payer MEDICARE, OTHER ==
--- NOTE | 2020-11-12 17:25 | Ultrasound Report ---
PROCEDURE: Head or Neck Soft Tissue INDICATIONS: GENERALIZED ENLARGED LYMPH NODES TECHNIQUE: Real time scanning was performed of the neck region of interest, with image documentation . COMPARISON: None. FINDINGS: At the inferior right parotid gland, a lymph node seen measuring approximately 2.5 x 1.4 x 1.6 cm. There are multiple enlarged cervical lymph nodes measuring up to 1.2 x 0.7 x 1.3 cm in the l eft submandibular region, and 2.0 x 0.7 x 1.2 cm in the right cervical region. Largest right submandi bular lymph node measures 1.2 x 0.5 x 1.4 cm. IMPRESSION: Multiple enlarged cervical and right inferior parotid lymph nodes as detailed above, nonspecific find ings and recommend clinical management. Reviewed by: Brad Shea MD on 11/12/2020 5:24 PM PDT Approved by: Brad Shea MD on 11/12/2020 5:24 PM PDT Station ID: [id number]
== END 2020-11-09 10:24 | disposition home or self-care (01) ==
LOC: DI 10:23
PROVIDERS: ATTEND Physician Assistant
DX: R59.0 Localized enlarged lymph nodes (principal)

== ENCOUNTER 2021-02-11 10:06 | Outpatient (CLI) | payer MEDICARE, OTHER ==
--- NOTE | 2021-02-11 12:37 | SLEEP CARE CONSULTATION ---
Information from patient questionnaire entered by Sagrario Buchanan. I have reviewed and concur with the information entered by Sagrario Buchanan. This document represents the service I personally performed and the decisions made by me, Concepcion Lopez MD, [facility]. History of Present Illness Service Date and Time: 02/11/2021 1006 Previous diagnosis: Severe, Obstructive Sleep Apnea-Hypopnea Syndrome AHI: 30.7 (in 2012) Equipment type: CPAP Equipment obtained from: [employer] Mask style: Nasal Prior sleep studies: Yes Year and Where: 2012 - [facility] HPI additional information: Mr. Layton returned today for annual follow up of nasal CPAP therapy. He was diagnosed to have severe obstructive sleep apnea-hypopnea syndrome. The patient gets his supplies from [employer]. He wears a ResMed N20 nasal mask. He reports using the device nightly and all through the night. The compliance report shows usage in 180 nights out of the past 180 nights, averaging 7.9 hours a night. The > 4 hour compliance rate for the past 180 days is 100%. He complained of no particular problem with the device such as soreness on the face, dry nose, epistaxis, nasal congestion or headache. He thinks that the pressure of 5 - 7 cmH2O is comfortable. On the CPAP therapy he notices improvement in his sleep quality, and that he wakes up feeling fresher in the morning and more awake/alert during the day. The [place] Sleepiness Scale score 8. The average residual AHI is 1.1; and air leak, 1.7 L/min. The 90th percentile pressure is 7 cmH2O. Sleep Study - Results Prior sleep studies: Yes Year and Where: 2012 - [facility] CPAP Compliance Data - Data Reviewed with Patient Average duration of nightly device use: 7 hours 55 minutes Compliance rate %: 100 Current pressure setting (cmH2O): 5-7 Average residual AHI: 1.1 Central apnea: 0 Obstructive apnea: .9 Hypopnea: .1 Subjective Patient concerns: reports: air blowing in eyes, mask leak noise, epistaxis Current pressure setting perceived as: comfortable Initial [place] Sleepiness Scale score: 10 (in 2018) Current [place] Sleepiness Scale score: 8 Allergies and Home Medications Drug allergies reviewed: Yes Home medication list reviewed: Yes Review of Systems Review of systems same as previous: Yes Physical Exam Height: 6 ft Weight: 302 lb Weight change since last visit: +34 Body Mass Index: 40.9 BMI Classification: Morbidly Obese Impression and Plan IMPRESSION: 1. Obstructive Sleep Apnea-Hypopnea Syndrome, severe, with the patient continuing to do well on nasal CPAP therapy. He has excellent compliance and significant clinical improvement. The current pressure appears effective and comfortable. Overall, she is very satisfied with treatment and plans to continue with it long-term. No adjustment is necessary today. PLAN: 1. Continue with autoCPAP set between 5 and 7 cmH2O. 2. Prescription made for supplies. 3. Try ResMed AirTouch N-20 mask 4. Return in one year for follow up or earlier if there are any problems. Counseling Topics: Weight control Follow up with Sleep Care in: 1 year Visit Type: In Office Time Spent with Patient (minutes): 15 Provider Statement: I spent 100% of the Face to Face Visit with the patient with greater than 50% spent counseling the patient and coordination of care.
== END 2021-02-11 10:07 | disposition home or self-care (01) ==
LOC: SC 10:06
PROVIDERS: ATTEND Internal Medicine Pulmonary Disease
DX: G47.33 Obstructive sleep apnea (adult) (pediatric) (principal); E66.01 Morbid (severe) obesity due to excess calories; Z68.41 Body mass index [BMI] 40.0-44.9, adult
CPT/HCPCS: 99212; G0463

== ENCOUNTER 2021-08-27 09:37 | Outpatient (CLI) | payer MEDICARE, OTHER ==
--- NOTE | 2021-08-27 15:59 | XRAY Report ---
PROCEDURE: Knee 3 View RT INDICATIONS: R KNEE PX TECHNIQUE: 3 views of the right knee(s) were acquired. COMPARISON: 09/23/2017 FINDINGS: Bones: No acute fractures or dislocations. No suspicious bony lesions. Mild-moderate tricompartmen rosanne degenerative changes of the right knee. Marginal osteophytes are present. No significant joint sp irving narrowing on weightbearing view. Soft tissues: There is a very small suprapatellar joint effusion. No suspicious soft tissue calcific ations. IMPRESSION: Right knee without acute fracture or dislocation. Mild-moderate tricompartmental degener ative changes of the right knee with very small suprapatellar joint effusion. Reviewed by: Jose G Pinto MD on 08/27/2021 3:58 PM PDT Approved by: Jose G Pinto MD on 08/27/2021 3:58 PM PDT Station ID: [id number]
== END 2021-08-27 09:38 | disposition home or self-care (01) ==
LOC: LAB.N 09:37 → DI.N 09:38
PROVIDERS: ATTEND Physician Assistant
DX: M17.11 Unilateral primary osteoarthritis, right knee (principal); M25.461 Effusion, right knee

== ENCOUNTER 2022-02-13 08:10 | Day surgery (SDC) | payer MEDICARE, OTHER ==
[2022-02-13] MEDS ORDERED: LACTATED RINGERS 1,000 ML IV ONE (08:14)
[2022-02-13] MEDS ORDERED: PROPOFOL 200 MG/20 ML VIAL IVP ONE ×2 (08:45→10:09)
[2022-02-13] MEDS ORDERED: PROPOFOL 500 MG/50 ML 500 MG/50 ML VIAL ONE (08:45)
--- NOTE | 2022-02-13 09:17 | ANESTHESIA ---
Pre-Anesthesia VS, & Labs - Diagnosis history of colon polyps - Procedure colonoscopy Vital Signs: Temp Pulse Resp BP Pulse Ox O2 Flow Rate 36.3 C L 80 16 136/94 H 98 0 02/13/22 08:25 02/13/22 08:25 02/13/22 08:25 02/13/22 08:25 02/13/22 08:25 02/13/22 08:25 Height: 6 ft Weight (kg): 129 kg Body Mass Index: 38.5 BMI Classification: Obese - NPO >8 hours Home Medications and Allergies Home Medications: Ambulatory Orders Atorvastatin Calcium [Lipitor] 80 mg PO DAILY 02/13/22 Lisinopril/Hydrochlorothiazide [Lisinopril-Hctz 20-25 mg Tab] 1 each PO BID 09/05/12 Multivitamin [Multivitamins] 1 each PO DAILY 09/05/12 Omeprazole [Prilosec] 20 mg PO DAILY 09/05/12 Pregabalin [Lyrica] 100 mg PO TID 09/05/12 allopurinoL [Zyloprim] 100 mg PO DAILY PRN 09/05/12 Albuterol [Proventil Hfa] 1 puffs INH QID 09/23/12 Mupirocin [Bactroban] 22 gm TP DAILY 09/23/12 Tadalafil [Cialis] 20 mg PO PRN PRN 09/23/12 Aspirin [Aspirin EC] 81 mg PO DAILY 07/29/16 diazePAM [Diazepam] 5 mg PO DAILY PRN 07/29/16 Atorvastatin Calcium [Lipitor] 80 mg PO DAILY 02/13/22 Allergies/Adverse Reactions: Allergies Allergy/AdvReac Type Severity Reaction Status Date / Time codeine [Codeine] Allergy Intermediate Rash Verified 11/08/16 00:31 gabapentin Allergy Intermediate Rash Verified 11/08/16 00:31 Anes History & Medical History - Anesthetic History Anesthesia Complications: reports: No previous complications - Medical History Cardiovascular: reports: Hypertension, High cholesterol, Peripheral Vascular Disease, [facility] Pulmonary: reports: COPD, Emphysema, Sleep apnea, CPAP use Gastrointestinal: reports: GERD, Colon polyps, Diverticulitis Urinary: reports: Benign prostate hypertrophy Neuro: reports: None Musculoskeletal: reports: Chronic back pain, Other (history of cervical stenosis s/p ACDF) Endocrine/Autoimmune: reports: None Skin: reports: None Smoking Status: Former smoker (quit 2019) Psychosocial: reports: No issues indicated History of Cancer?: No - Surgical History General: reports: Colonoscopy, EGD Cardiothoracic: reports: Coronary stent (x5), Fempop bypass Orthopedic: reports: Carpal Tunnel surgery, Spine surgery Exam General: Alert, Oriented x3, Cooperative, No acute distress Dental: Partials Lower Mouth Openin Fingerbreadth Neck Mobility: Normal Mallampati classification: III Thyromental Distance: 4-6 cm Mental/Cognitive Status: Alert/Oriented X3, Normal for patient Plan Anesthesia Type: General, Total IV Consent for Procedure(s) Verified and Reviewed: Yes Code Status: Attempt Resuscitation ASA classification: 3-Severe systemic disease Is this case an emergency?: No
[2022-02-13] MEDS ORDERED: SIMETHICONE 40 MG/0.6 ML 30 ML BOTTLE PO ONE (09:34)
[2022-02-13] MEDS ORDERED: LACTATED RINGERS 600 ML IV ONE (10:24)
[2022-02-13 10:31] VITALS: BP 118/78
--- NOTE | 2022-02-13 12:39 | ANESTHESIA POST OP EVALUATION ---
Anesthesia Post Eval - Post Anesthesia Eval Vitals: Last Vital Signs Temp 36.2 C L 02/13/22 11:04 Pulse 70 02/13/22 11:04 Resp 16 02/13/22 11:04 BP 118/78 02/13/22 10:25 Pulse Ox 96 02/13/22 11:04 O2 Flow Rate 0 02/13/22 08:25 CV Function Including HR & BP: Stable Pain Control: Satisfactory Nausea & Vomiting: Negative Mental Status: Baseline Respiratory Status: Airway Patent Hydration Status: Satisfactory Anesthesia Complications: None
== END 2022-02-13 08:11 | disposition home or self-care (01) ==
LOC: SDS 08:10
PROVIDERS: ATTEND Surgery
PROC: 0DBP8ZZ Excision of Rectum, Via Natural or Artificial Opening Endoscopic (ICD-10-PCS; 2022-02-13)
PROC: 0DBM8ZZ Excision of Descending Colon, Via Natural or Artificial Opening Endoscopic (ICD-10-PCS; 2022-02-13)
PROC: 0DBK8ZZ Excision of Ascending Colon, Via Natural or Artificial Opening Endoscopic (ICD-10-PCS; principal; 2022-02-13 09:30)
DX: Z12.11 Encounter for screening for malignant neoplasm of colon (principal); K62.1 Rectal polyp; D12.4 Benign neoplasm of descending colon; D12.2 Benign neoplasm of ascending colon; K64.5 Perianal venous thrombosis; J43.9 Emphysema, unspecified; E66.9 Obesity, unspecified; Z68.38 Body mass index [BMI] 38.0-38.9, adult; G47.30 Sleep apnea, unspecified; I25.2 Old myocardial infarction; F17.210 Nicotine dependence, cigarettes, uncomplicated; I73.9 Peripheral vascular disease, unspecified; Z95.5 Presence of coronary angioplasty implant and graft
CPT/HCPCS: 45380; 45385; A9270; J7120

== ENCOUNTER 2022-03-03 11:04 | Outpatient (CLI) | payer MEDICARE, OTHER ==
[2022-03-03 11:39] VITALS: BP 120/68
--- NOTE | 2022-03-03 11:39 | SLEEP CARE CONSULTATION ---
Information from patient questionnaire entered by Tianna Russell. I have reviewed and concur with the information entered by Tianna Russell. This document represents the service I personally performed and the decisions made by me, Concepcion Lopez MD, [facility]. History of Present Illness Service Date and Time: 03/03/2022 1104 Previous diagnosis: Severe, Obstructive Sleep Apnea-Hypopnea Syndrome AHI: 30.7 (in 2012) Reason for follow up: annual Equipment type: CPAP (RESMED) Equipment obtained from: [employer] Mask style: Nasal Prior sleep studies: Yes Year and Where: 2012 - [facility] HPI additional information: Mr. Layton returned today for annual follow up of nasal CPAP therapy. He was diagnosed to have severe obstructive sleep apnea-hypopnea syndrome. The patient gets his supplies from [employer]. He wears a ResMed N20 nasal mask. He reports using the device nightly and all through the night. The compliance report shows usage in 90 nights out of the past 90 nights, averaging 7.7 hours a night. The > 4 hour compliance rate for the past 90 days is 100%. He complained of no particular problem with the device such as soreness on the face, dry nose, epistaxis, nasal congestion or headache. He thinks that the pressure of 5 - 7 cmH2O is too low. On the CPAP therapy he notices improvement in his sleep quality, and that he wakes up feeling fresher in the morning and more awake/alert during the day. The [place] Sleepiness Scale score 8. The average residual AHI is 0.6; and air leak, 3.3 L/min. The 90th percentile pressure is 7 cmH2O. Sleep Study - Results Prior sleep studies: Yes Year and Where: 2012 - [facility] CPAP Compliance Data - Data Reviewed with Patient Average duration of nightly device use: 7 hours, 42 minutes Compliance rate %: 98 (12/03/21 to 03/02/22) Current pressure setting (cmH2O): 5-7 Average residual AHI: 0.6 Subjective Initial [place] Sleepiness Scale score: 10 (in 2018) Current [place] Sleepiness Scale score: 8 (03/03/22) Allergies and Home Medications Drug allergies reviewed: Yes Home medication list reviewed: Yes Allergy and home medication list: Allergies codeine [Codeine] Allergy (Intermediate, Verified 11/08/16 00:31) Rash gabapentin Allergy (Intermediate, Verified 11/08/16 00:31) Rash Review of Systems Review of systems same as previous: Yes Physical Exam Vital signs obtained and entered by: ETHAN ORDONEZ Blood Pressure: 120/68 (left arm ) Cuff size: long Heart Rate: 90 O2 Saturation: 96 Height: 6 ft Weight: 297 lb Body Mass Index: 40.2 BMI Classification: Morbidly Obese Impression and Plan IMPRESSION: 1. Obstructive Sleep Apnea-Hypopnea Syndrome, severe, with the patient continuing to do well on nasal CPAP therapy. He has excellent compliance and significant clinical improvement. The current pressure appears effective. Overall, she is very satisfied with treatment and plans to continue with it long-term. For his comfort, I will raise the pressure to 6 10 cmH2O. PLAN: 1. AutoCPAP raised to 6 -10 cmH2O via the memory card. 2. Try to lose weight. 3. Return for a follow up in 6 months when he is eligible for a new machine. Counseling Topics: Weight control Follow up with Sleep Care in: 6 months Visit Type: In Office Time Spent with Patient (minutes): 15 Provider Statement: I spent 100% of the Face to Face Visit with the patient with greater than 50% spent counseling the patient and coordination of care.
== END 2022-03-03 11:05 | disposition home or self-care (01) ==
LOC: SC 11:04
PROVIDERS: ATTEND Internal Medicine Pulmonary Disease
DX: G47.33 Obstructive sleep apnea (adult) (pediatric) (principal); E66.01 Morbid (severe) obesity due to excess calories; Z68.41 Body mass index [BMI] 40.0-44.9, adult
CPT/HCPCS: 99212; G0463

== ENCOUNTER 2022-09-01 10:54 | Outpatient (CLI) | payer MEDICARE, OTHER ==
--- NOTE | 2022-09-01 11:21 | SLEEP CARE CONSULTATION ---
Information from patient questionnaire entered by Dennis Auguste. I have reviewed and concur with the information entered by Dennis Auguste. This document represents the service I personally performed and the decisions made by me, Concepcion Lopez MD, [facility]. History of Present Illness Service Date and Time: 09/01/2022 1054 Previous diagnosis: Severe, Obstructive Sleep Apnea-Hypopnea Syndrome AHI: 30.7 (in 2012) Reason for follow up: six month (F/U) Equipment type: CPAP (RESMED SD CARD NEEDED) Equipment obtained from: [employer] Mask style: Nasal Prior sleep studies: Yes Year and Where: 2012 - [facility] HPI additional information: Mr. Layton returned today for annual follow up of nasal CPAP therapy. He was diagnosed to have severe obstructive sleep apnea-hypopnea syndrome. The patient gets his supplies from [employer]. He wears a ResMed N20 nasal mask. He reports using the device nightly and all through the night. The compliance report shows usage in 179 nights out of the past 180 nights, averaging 8.1 hours a night. The > 4 hour compliance rate for the past 180 days is 99%. He complained of no particular problem with the device such as soreness on the face, dry nose, epistaxis, nasal congestion or headache. He thinks that the pressure of 6 - 10 cmH2O is comfortable. On the CPAP therapy he notices improvement in his sleep quality, and that he wakes up feeling fresher in the morning and more awake/alert during the day. The [place] Sleepiness Scale score 5 (was 8 last year). The average residual AHI is 0.6; and air leak, 2.4 L/min. The 90th percentile pressure is 10 cmH2O. Sleep Study - Results Prior sleep studies: Yes Year and Where: 2012 - [facility] in [place] Subjective Initial [place] Sleepiness Scale score: 10 (in 2018) Current [place] Sleepiness Scale score: 5 (09/01/22) Allergies and Home Medications Drug allergies reviewed: Yes Home medication list reviewed: Yes Allergy and home medication list: Allergies codeine [Codeine] Allergy (Intermediate, Verified 11/08/16 00:31) Rash gabapentin Allergy (Intermediate, Verified 11/08/16 00:31) Rash Review of Systems Review of systems same as previous: Yes Physical Exam Vital signs obtained and entered by: DENNIS Rodríguez MA Blood Pressure: 126/72 (LEFT ARM) Cuff size: long Heart Rate: 85 O2 Saturation: 98 Height: 6 ft Weight: 298 lb 3.2 oz Body Mass Index: 40.4 BMI Classification: Morbidly Obese Impression and Plan IMPRESSION: 1. Obstructive Sleep Apnea-Hypopnea Syndrome, severe, with the patient continuing to do well on nasal CPAP therapy. He has excellent compliance and significant clinical improvement. The current pressure appears effective. Overall, she is very satisfied with the treatment and plans to continue with it long-term. Because the CPAP is now older than the useful life of 5 years, I will order the patient a new one and make it an autoCPAP set between 6 and 10 cmH2O. PLAN: 1. Prescription made for an autoCPAP, heated humidifier, and related supplies. 2. Try to lose weight. 3. Return for follow up in a year or earlier if there is any problem. Counseling Topics: Weight control Prescriptions: Auto CPAP Follow up with Sleep Care in: 1 year Visit Type: In Office Time Spent with Patient (minutes): 15 Provider Statement: I spent 100% of the Face to Face Visit with the patient with greater than 50% spent counseling the patient and coordination of care.
[2022-09-01 11:23] VITALS: BP 126/72
== END 2022-09-01 10:55 | disposition home or self-care (01) ==
LOC: SC 10:54
PROVIDERS: ATTEND Internal Medicine Pulmonary Disease
DX: G47.33 Obstructive sleep apnea (adult) (pediatric) (principal); E66.01 Morbid (severe) obesity due to excess calories; Z68.41 Body mass index [BMI] 40.0-44.9, adult
CPT/HCPCS: 99212; G0463

== ENCOUNTER 2022-09-09 10:45 | Outpatient (CLI) | payer MEDICARE, OTHER ==
--- NOTE | 2022-09-09 15:05 | CT Report ---
PROCEDURE: Low Dose Lung Cancer Screen INDICATIONS: CURRENT SMOKER TECHNIQUE: Noncontrast low-dose axial images were acquired from the pulmonary apices to the posterior costophren ic angles. Multiplanar MIP reformats were then reconstructed. For radiation dose reduction, the follo wing was used: automated exposure control, adjustment of mA and/or kV according to patient size. COMPARISON: 05/17/2020 FINDINGS: Image quality: Excellent. Prior cancer history: Unsure. Lungs and pleura: No pleural effusions. No pneumothorax. There is a triangular juxta fissural nodule in the left midlung, /174 measuring about 3 mm. Pleural-based 5 mm right upper lobe nodule, 4/115. No new or suspicious nodules. No consolidations or groundglass opacities. Central and peripheral airw ays are normal. Mediastinum: Heart size is normal with moderate to heavy coronary artery calcification. No pericardia l effusions. No mediastinal adenopathy by size criteria. No large vessel abnormality. Chest wall and lower neck: Lower neck and there are gland are not well seen. No axillary adenopathy o r chest wall abnormality. Bones: No suspicious bone lesions. Degenerative disc and endplate change in the thoracic spine. Upper Abdomen: Limited due to technique. No obvious abnormalities seen. IMPRESSION: Lung RAD: 2 - Benign. Recommendation: Continue annual screening in 12 Months with LDCT Non-Lung Significant Findings: Coronary Arterial Calcification - Moderate or Severe. Reviewed by: Emily Francis MD on 09/09/2022 2:03 PM AKDT Approved by: Emily Francis MD on 09/09/2022 2:03 PM AKDT Station ID: [id number]
== END 2022-09-09 10:46 | disposition home or self-care (01) ==
LOC: DI 10:45
PROVIDERS: ATTEND Internal Medicine
DX: Z12.2 Encounter for screening for malignant neoplasm of respiratory organs (principal); F17.210 Nicotine dependence, cigarettes, uncomplicated

== ENCOUNTER 2022-09-18 08:27 | Outpatient (CLI) | payer MEDICARE, OTHER ==
--- NOTE | 2022-09-18 12:11 | CT Report ---
PROCEDURE: ABDOMEN/PELVIS WO INDICATIONS: RIGHT FLANK PAIN TECHNIQUE: A CT scan of the abdomen and pelvis was performed without the use of intravenous contrast. Images we re recorded and evaluated at appropriate window settings. Reformats: coronal and sagittal. For radiat ion dose reduction, the following was used: automated exposure control, adjustment of mA and/or kV ac cording to patient size. COMPARISON: None. FINDINGS: Image quality: Excellent. Lung bases and heart: Unremarkable. Liver: Cyst at the liver dome. Gallbladder and biliary tree: No radiopaque stones or wall thickening. No biliary dilation. Spleen: No splenomegaly. Pancreas: No pancreatic ductal dilation. Adrenals: No adrenal nodule. Kidneys and ureters: No hydronephrosis. No renal cystic lesion which requires follow up. No solid mas s. Bowel and peritoneum: No bowel distension. No pathologic free fluid. Normal appendix. Lymph nodes: No central or retroperitoneal adenopathy. Vessels: No infrarenal aortic aneurysm. Aortobifemoral bypass graft. PELVIS Reproductive organs: Unremarkable. Bladder: No wall thickness, accounting for underdistention. Pelvic lymph nodes: No pelvic adenopathy by size criteria. Bones: No aggressive osseous abnormality. Other: Umbilical hernia containing a knuckle of nonobstructed small bowel. IMPRESSION: No hydronephrosis or obstructing renal stone. Normal appendix. Tiny umbilical hernia containing a knuckle of nonobstructed small bowel wall. Reviewed by: Huseyin Botello on 09/18/2022 12:09 PM PDT Approved by: Huseyin Botello on 09/18/2022 12:09 PM PDT Station ID: [id number]
== END 2022-09-18 08:28 | disposition home or self-care (01) ==
LOC: DI 08:27
PROVIDERS: ATTEND Student in an Organized Health Care Education/Training Program
DX: R10.9 Unspecified abdominal pain (principal); K42.9 Umbilical hernia without obstruction or gangrene

== ENCOUNTER 2023-01-16 12:54 | Outpatient (CLI) | payer MEDICARE, OTHER ==
[2023-01-16] MEDS ORDERED: iohexoL-300 100 ML VIAL IVP ONE (15:21)
--- NOTE | 2023-01-16 15:44 | CT Report ---
PROCEDURE: SOFT TISSUE NECK W INDICATIONS: PAROTID MASS CONTRAST: 100ml omni 300 TECHNIQUE: After the administration of intravenous contrast, 3.0 mm axial sections acquired from the sella to th e aortic arch. Additional oblique axial 3.0 mm sections acquired through the pharynx. 3 mm thick co richard reformats were generated. For radiation dose reduction, the following was used: automated exp osure control, adjustment of mA and/or kV according to patient size. COMPARISON: Correlation is made with prior ultrasound, 11/09/2020. FINDINGS: Image quality: Excellent. Lymph nodes: No enlarged lymph nodes seen throughout the neck. Prominent lymph nodes can be seen throughout the neck. Vessels: Visualized vasculature appears patent. Neck spaces: The oropharynx, nasopharynx, and pharynx demonstrate no mucosal lesions. The vocal cor ds, false vocal cords, pyriform sinuses, epiglottis, vallecula, and tongue base all appear normal. E xtramucosal spaces appear unremarkable. Glands: Within the inferior right parotid gland, there is a mildly hyperenhancing nodule, as on seri es 2 image 54 measuring 18 x 19 mm, with a craniocaudal extent of 21 mm. The submandibular glands appear normal. The thyroid is normal in size and there are no incidental fi ndings. Miscellaneous: Visualized brain and orbits appear normal. Lung apices appear clear. Superficial so ft tissues appear normal. Bones: No suspicious bony lesions. Visualized sinuses and mastoids appear unremarkable. Cervical s melodie degenerative changes can be seen throughout. Anterior fixation hardware can be seen at C6-C7. IMPRESSION: 21 mm mildly hyperenhancing nodule within the inferior aspect of the right parotid gland. 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 Please consider worsening tumor or pleomorphic phillip azeem. Differential diagnosis includes an abnormal lymph node and metastatic disease. Parotid carcinoma is considered to be less likely. - If clinically appropriate, please consider ultrasound-guided percutaneous fine needle aspiration. Additional findings: Anterior cervical fixation hardware at C6-C7 Reviewed by: Jamaal Montemayor MD on 01/16/2023 2:43 PM AKDEB Approved by: Jamaal Montemayor MD on 01/16/2023 2:43 PM AKDT Station ID: [id number]
== END 2023-01-16 12:55 | disposition home or self-care (01) ==
LOC: DI 12:54
PROVIDERS: ATTEND Internal Medicine
DX: K11.8 Other diseases of salivary glands (principal)
CPT/HCPCS: 70491; Q9967

== ENCOUNTER 2023-08-28 09:25 | Outpatient (CLI) | payer MEDICARE, OTHER ==
--- NOTE | 2023-08-29 02:00 | XRAY Report ---
PROCEDURE: Chest 2V INDICATIONS: COUGH TECHNIQUE: 2 views of the chest were obtained. COMPARISON: None. FINDINGS: Surgical changes and devices: Plate and screw hardware in the lower cervical spine Lungs and pleura: No pleural effusions or pneumothorax. Lungs are clear. Mediastinum: Mediastinal contours appear normal. Heart size is normal. Bones and chest wall: No suspicious bony lesions. Overlying soft tissues appear unremarkable. IMPRESSION: No acute cardio pulmonic findings Reviewed by: Parker Mesa MD on 08/29/2023 12:59 AM ZACHARIAH Approved by: Parker Mesa MD on 08/29/2023 12:59 AM AKDEB Station ID: [id number]
== END 2023-08-28 09:26 | disposition home or self-care (01) ==
LOC: DI 09:25
PROVIDERS: ATTEND Student in an Organized Health Care Education/Training Program
DX: R05.9 Cough, unspecified (principal)

== ENCOUNTER 2023-11-23 07:51 | Outpatient (CLI) | payer MEDICARE, OTHER ==
--- NOTE | 2023-11-23 17:31 | Ultrasound Report ---
PROCEDURE: Soft Tissue Head or Neck INDICATIONS: NECK MASS TECHNIQUE: Real-time scanning was performed of the neck, with image documentation. COMPARISON: CT neck 01/16/2023. Ultrasound 11/12/2020 FINDINGS: A prominent lymph node is seen along the posterior parotid that measures 2.0 x 1.1 x 0.9 cm. When com pared with the cine images on the prior ultrasound from 11/30/2020 and compared to the CT, this likely does not correspond to the deeper parotid mass. IMPRESSION: A few mildly prominent cervical lymph nodes are seen. Previously seen parotid mass is no t definitely visualized on this exam. Reviewed by: Peewee Willett MD on 11/23/2023 5:29 PM PDT Approved by: Peewee Willett MD on 11/23/2023 5:29 PM PDT Station ID: [id number]
== END 2023-11-23 07:52 | disposition home or self-care (01) ==
LOC: DI 07:51
PROVIDERS: ATTEND Internal Medicine
DX: R22.1 Localized swelling, mass and lump, neck (principal)

== ENCOUNTER 2023-11-30 14:13 | Outpatient (CLI) | payer MEDICARE, OTHER ==
--- NOTE | 2023-11-30 19:24 | SLEEP CARE CONSULTATION ---
Information from patient questionnaire entered by Dennis Auguste. I have reviewed and concur with the information entered by Dennis Auguste. This document represents the service I personally performed and the decisions made by me, Concepcion Lopez MD, [facility]. History of Present Illness Service Date and Time: 11/30/2023 1413 Previous diagnosis: Severe, Obstructive Sleep Apnea-Hypopnea Syndrome AHI: 30.7 (in 2012) Reason for follow up: annual (LAST SEEN 08/2022) Equipment type: CPAP (RESMED SD CARD NEEDED) Equipment obtained from: [employer] Mask style: Nasal Prior sleep studies: Yes Year and Where: 2012 - [facility] HPI additional information: Mr. Layton returned today for annual follow up of nasal CPAP therapy. He was diagnosed to have severe obstructive sleep apnea-hypopnea syndrome. The patient gets his supplies from [employer]. He wears a ResMed N20 nasal mask (he did not like the N30). He reports using the device nightly and all through the night. The compliance report shows usage in 356 nights out of the past 365 nights, averaging 8.6 hours a night. The > 4-hour compliance rate for the past 365 days is 97%. He complained of dry nose. He keeps the bedroom cool and water condenses inside the hose when he turns up the humidity. He thinks that the pr essure of 6 - 10 cmH2O is comfortable. On the CPAP therapy he notices improvement in his sleep quality, and that he wakes up feeling fresher in the morning and more awake/alert during the day. The [place] Sleepiness Scale score 5 (was 8 last year). The average residual AHI is 0.8; and air leak, 2.3 L/min. The 90th percentile pressure is 9.8 cmH2O. Sleep Study - Results Prior sleep studies: Yes Year and Where: 2012 - [facility] CPAP Compliance Data - Data Reviewed with Patient Average duration of nightly device use: 8HRS 36MINS Compliance rate %: 97 (11/30/22-11/29/23) Current pressure setting (cmH2O): 6-10 Average residual AHI: 0.8 Subjective Initial [place] Sleepiness Scale score: 10 (in 2018) Current [place] Sleepiness Scale score: 5 (11/30/23) Allergies and Home Medications Drug allergies reviewed: Yes Home medication list reviewed: Yes Allergy and home medication list: Allergies codeine [Codeine] Allergy (Intermediate, Verified 11/30/23 14:22) Rash gabapentin Allergy (Intermediate, Verified 11/30/23 14:22) Rash Review of Systems Review of systems same as previous: Yes Physical Exam Vital signs obtained and entered by: DENNIS Rodríguez MA Blood Pressure: 178/92 ( LEFT ARM) Cuff size: regular Heart Rate: 83 O2 Saturation: 96 Height: 6 ft Weight: 290 lb 9.6 oz Body Mass Index: 39.4 BMI Classification: Obese Impression and Plan IMPRESSION: 1. Obstructive Sleep Apnea-Hypopnea Syndrome, severe, with the patient continuing to do well on nasal CPAP therapy. He has excellent compliance and significant clinical improvement. The current pressure appears effective. Overall, she is very satisfied with the treatment and plans to continue with it long-term. No adjustment is necessary today. PLAN: 1. Continue with autoCPAP set at 6 - 10 cmH2O. 2. Use CPAP hose cover to keep the hose warm. This way he does not have to turn up the tube heat. 3. Try to lose weight. 4. Return for follow up in a year or earlier if there is any problem. Continue with device pressure at (cmH2O): 6 - 10 Follow up with Sleep Care in: 1 year Follow up recommended for: Weight management Visit Type: In Office Time Spent with Patient (minutes): 15 Provider Statement: I spent 100% of the Face to Face Visit with the patient with greater than 50% spent counseling the patient and coordination of care.
[2023-11-30 19:27] VITALS: BP 178/92; O2SAT 96
== END 2023-11-30 14:14 | disposition home or self-care (01) ==
LOC: SC 14:13
PROVIDERS: ATTEND Internal Medicine Pulmonary Disease
DX: G47.33 Obstructive sleep apnea (adult) (pediatric) (principal); E66.9 Obesity, unspecified; Z68.39 Body mass index [BMI] 39.0-39.9, adult
CPT/HCPCS: 99212; G0463

== ENCOUNTER 2024-01-04 18:59 | Emergency (ER) | payer MEDICARE, OTHER ==
[2024-01-04 19:15] VITALS: BP 150/78
--- NOTE | 2024-01-04 19:38 | ED Physician Documentation ---
History of Present Illness - Stated complaint Stated Complaint: LOWER BACK PX - Chief complaint Chief Complaint: Back Pain - History obtained from History obtained from: Patient - History of Present Illness Timing: Today Pain level max: 8 Pain level now: 8 - Additonal information Additional information: Patient is a 68-year-old male who presents to the emergency department right flank pain. Started earlier today. Has had kidney stones x 2 in the past and states that this feels similar. Nothing makes it better or worse. Has not taken anything for pain. No urinary symptoms. No dysuria. No fevers. No vomiting. No nausea. No hematuria. Not on blood thinners. No history of renal failure. No falls. No trauma. No numbness or tingling. Review of Systems Constitutional: denies: Fever, Chills GI: denies: Nausea, Vomiting, Diarrhea Skin: denies: Rash Musculoskeletal: denies: Neck pain Neurologic: denies: Focal weakness, Numbness, Headache, Head injury PD PAST MEDICAL HISTORY - Past Medical History Past Medical History: Yes Cardiovascular: Hypertension, High cholesterol, Peripheral Vascular Disease, [place] Respiratory: COPD, Emphysema, Sleep apnea, CPAP use Neuro: None Endocrine/Autoimmune: None GI: GERD, Colon polyps, Diverticulitis : Benign prostate hypertrophy HEENT: Chronic vision loss Psych: None Musculoskeletal: Chronic back pain, Other Derm: None - Past Surgical History Past Surgical History: Yes General: Colonoscopy, EGD Ortho: Carpal Tunnel surgery, Spine surgery Cardiovascular: Coronary stent, Fempop bypass - Present Medications Home Medications: Ambulatory Orders Medication Instructions Recorded Confirmed Lisinopril/Hydrochlorothiazide 1 each PO BID 09/05/12 11/30/23 [Lisinopril-Hctz 20-25 mg Tab] Multivitamin [Multivitamins] 1 each PO DAILY 09/05/12 11/30/23 Omeprazole [Prilosec] 20 mg PO DAILY 09/05/12 11/30/23 Pregabalin [Lyrica] 100 mg PO TID 09/05/12 11/30/23 allopurinoL [Zyloprim] 100 mg PO DAILY PRN 09/05/12 11/30/23 Albuterol [Proventil Hfa] 1 puffs INH QID 09/23/12 11/30/23 Mupirocin [Bactroban] 22 gm TP DAILY 09/23/12 11/30/23 Tadalafil [Cialis] 20 mg PO PRN PRN 09/23/12 11/30/23 Oxycodone HCl/Acetaminophen 1 - 2 each PO Q6H PRN #15 tablet 05/21/14 11/30/23 [Percocet 5-325 mg Tablet] Aspirin [Aspirin EC] 81 mg PO DAILY 07/29/16 11/30/23 diazePAM [Diazepam] 5 mg PO DAILY PRN 07/29/16 11/30/23 Famotidine 20 mg PO DAILY #15 tablet 01/25/19 11/30/23 Atorvastatin Calcium [Lipitor] 80 mg PO DAILY 02/13/22 11/30/23 Tiotropium [place] [Spiriva See Rx Instructions .ROUTE .COMPLEX 09/01/22 11/30/23 Handihaler] Metfromin See Rx Instructions .ROUTE .COMPLEX 11/30/23 11/30/23 Tiotropium [place] [Spiriva See Rx Instructions .ROUTE .COMPLEX 11/30/23 11/30/23 Handihaler] HYDROcod/ACETAM 5/325 [Bells 5/325] 1 - 2 ea PO Q6H PRN #14 tablet 01/04/24 - Allergies Allergies/Adverse Reactions: Allergies Allergy/AdvReac Type Severity Reaction Status Date / Time codeine [Codeine] Allergy Intermediate Rash Verified 01/04/24 19:08 gabapentin Allergy Intermediate Rash Verified 01/04/24 19:08 - Social History Does the pt smoke?: Yes Smoking Status: Current every day smoker Does the pt drink ETOH?: Yes Does the pt have substance abuse?: No - Immunizations Immunizations are current?: Yes - POLST Patient has POLST: No PD ED PE NORMAL - Vitals Vital signs reviewed: Yes - General General: Alert and oriented X 3, No acute distress - HEENT HEENT: PERRL, Moist mucous membranes - Neck Neck: Supple, no meningeal sign - Cardiac Cardiac: RRR, Strong equal pulses - Respiratory Respiratory: No respiratory distress, Clear bilaterally - Abdomen Abdomen: Soft, Non tender, Non distended - Back Back: No CVA TTP, No spinal TTP - Derm Derm: Warm and dry - Extremities Extremities: No edema - Neuro Neuro: Alert and oriented X 3, wood borer 2-12 intact, No motor deficit, No sensory deficit, Normal speech, Other (Normal bilateral lower extremity patellar and ankle jerk reflexes. Normal great toe extension bilaterally. no saddle anesthesia) - Psych Psych: Normal mood, Normal affect Results - Vitals Vitals: Vital Signs - 24 hr 01/04/24 01/04/24 19:09 19:12 Temperature 36.9 C Heart Rate 90 Respiratory 97 H 17 Rate Blood Pressure 150/78 H Oxygen O2 Source Room air - Labs Labs: Laboratory Tests 01/04/24 01/04/24 01/04/24 19:15 19:44 19:44 WBC 6.9 RBC 3.96 L Hgb 11.3 L Hct 34.5 L MCV 87.1 MCH 28.5 MCHC 32.8 RDW 14.2 Plt Count 153 MPV 10.9 Neut # (Auto) 4.3 Lymph # (Auto) 2.0 Jack # (Auto) 0.5 Eos # (Auto) 0.1 Baso # (Auto) 0.0 Absolute Nucleated RBC 0.00 Nucleated RBC % 0.0 Sodium 141 Potassium 3.3 L Chloride 105 Carbon Dioxide 27 Anion Gap 9.0 BUN 24 H Creatinine 1.0 Estimated GFR (MDRD) 75 L Glucose 171 H Calcium 9.7 Total Bilirubin 0.3 AST 16 ALT 16 Alkaline Phosphatase 42 Total Protein 6.5 Albumin 4.3 Globulin 2.2 Albumin/Globulin Ratio 2.0 Lipase 34 Urine Color YELLOW Urine Clarity CLEAR Urine pH 5.5 Ur Specific [place] 1.025 Urine Protein NEGATIVE Urine Glucose (UA) NEGATIVE Urine Ketones NEGATIVE Urine Occult Blood NEGATIVE Urine Nitrite NEGATIVE Urine Bilirubin NEGATIVE Urine Urobilinogen 0.2 (NORMAL) Ur Leukocyte Esterase NEGATIVE Ur Microscopic Review NOT INDICATED Urine Culture Comments NOT INDICATED - Rads (name of study) CT abdomen pelvis Relevant Findings:: Final report received, See rad report PD Medical Decision Making - ED course Complexity details: reviewed results, re-evaluated patient, considered differential, d/w patient ED course: No acute findings on laboratory testing. No acute findings on CT abdomen and pelvis. No hematuria. Pain well-controlled in the emergency department. Possible has a small stone that is too small to see on CT scan? No evidence of acute intra-abdominal abnormality on CT scan. We will place on pain medication for home and have him follow-up with his doctor for further care. He will return if he fails to improve as expected. Encourage p.o. hydration. Patient counseled regarding signs and symptoms for which I believe and urgent re- evaluation would be necessary. Patient with good understanding of and agreement to plan and is comfortable going home at this time This document was made in part using voice recognition software. While efforts are made to proofread this document, sound alike and grammatical errors may occur. No evidence of UTI Departure - Departure Disposition: Home, Self Care Clinical Impression: Back pain Qualifiers: Back pain location: low back pain Chronicity: acute Back pain laterality: right Sciatica presence: without sciatica Qualified Code(s): M54.50 - Low back pain, unspecified Condition: Good Instructions: ED Neck Back Pain General Follow-Up: Aneesh Cheung MD [Primary Care Provider] - Prescriptions: HYDROcod/ACETAM 5/325 [Bells 5/325] 1 - 2 ea PO Q6H PRN #14 tablet PRN Reason: Pain Comments: Your CT scan does not show any acute abnormalities. Your prescription [facility] in [place]. It is possible the up a very small ureteral stone t hat is passing and is not seen on the CT scan. We will place you on pain medication for the next few days to see how your symptoms change. Please return if you worsen. I am prescribing a short course of narcotic pain medication for you. These are potentially dangerous and addictive medications that should be used carefully. These medications may constipate you. Take an uufl-kdr-hysvrca stool softener (docusate) twice daily with plenty of water while taking these medications. If you go 24 hours without a bowel movement, take zlyt-try-odtbzwy miralax, per package instructions. Do not drink or drive while taking these medications. If you received narcotic or sedating medications while in the emergency department, do not drive for 24 hours. Store this medication in a safe, secure place and out of reach of children. It is a violation of federal law to give or sell this medication to another person or to use in a manner other than prescribed. The ED will not refill narcotic prescriptions, including prescriptions lost or stolen. To dispose of unwanted medications: 1. [facility] at [address] in [place] has a medication drop box. They accept prescription medications (in pill form) Thursday through Thursday 9:00 a.m. to 5:00 p.m. 2. [facility] [employer] accepts prescription medications (in pill form only) for disposal year round. Call for more information. 3. Contact the [facility] for the next [facility] sponsored prescription drug collection event. , [phone], or [phone]; EXAM: [id number] CT/ABPEWO ([id number]) PROCEDURE: Abdomen/Pelvis WO INDICATIONS: R flank pain TECHNIQUE: A CT scan of the abdomen and pelvis was performed without the use of intravenous contrast. Images were recorded and evaluated at appropriate window settings. Reformats: coronal and sagittal. For radiation dose reduction, the following was used: automated exposure control, adjustment of mA and/or kV according to patient size. COMPARISON: CT abdomen and pelvis 09/18/2022. FINDINGS: Image quality: Diagnostic. Lower chest: Unremarkable. Liver: No contour-deforming mass. Simple appearing hepatic cyst is redemonstrated. Gallbladder: No radiopaque stones or wall thickening. Biliary tree: No intrahepatic or extrahepatic dilation, accounting for age. Spleen: No splenomegaly. Pancreas: No pancreatic ductal dilation. Adrenals: No adrenal nodule. Kidneys and ureters: Bilateral perinephric stranding. No hydronephrosis. No contour-deforming mass. Stomach, bowel and peritoneum: No gastric or small bowel dilation. No abnormal wall thickening. No pathologic free fluid. Normal appendix. Lymph nodes: No central or retroperitoneal adenopathy. Vessels: No infrarenal aortic aneurysm. Atherosclerotic vascular calcifications. Aortobiiliac graft in place, not well evaluated on this noncontrast exam. Reproductive organs: Unremarkable. Bladder: Possible mild urinary bladder wall thickening. No calcified bladder stones. Pelvic lymph nodes: No adenopathy by size criteria. Bones: No aggressive osseous abnormality. Other: Small bilateral fat-containing hernias. Small umbilical hernia containing a small knuckle of bowel without obstruction. Small supraumbilical hernia containing fat.. IMPRESSION: 1.No hydronephrosis or obstructing renal stone. 2.Bilateral perinephric stranding and possible mild urinary bladder wall thickening. Recommend correlation with urinary analysis to evaluate for infection. Discharge Date/Time: 01/04/24 21:01
[2024-01-04 19:44] LABS: BILIRUBIN,URINE NEGATIVE (NEGATIVE); GLUCOSE, URINE (UA) NEGATIVE (NEGATIVE); KETONES,URINE (UA) NEGATIVE (NEGATIVE); LEUKOCYTE ESTERASE, URINE NEGATIVE (NEGATIVE); NITRITE,URINE NEGATIVE (NEGATIVE); OCCULT BLOOD,URINE NEGATIVE (NEGATIVE); PH,URINE 5.5 PH (5.0-7.5); PROTEIN,URINE NEGATIVE (NEGATIVE); UROBILINOGEN,URINE 0.2 (NORMAL) E.U./dL (NORMAL)
[2024-01-04] MEDS: KETOROLAC 30 MG/ML VIAL IM STA (19:44)
[2024-01-04 19:45] LABS: CLARITY,URINE CLEAR (CLEAR)
[2024-01-04 19:51] LABS: BASOPHILS % (AUTO) 0.4 %; EOSINOPHILS # (AUTO) 0.1 10^3/uL (0.0-0.7); EOSINOPHILS % (AUTO) 0.7 %; HCT - HEMATOCRIT 34.5 % (42.0-52.0); HGB - HEMOGLOBIN 11.3 g/dL (14.0-18.0); LYMPHOCYTES % (AUTO) 28.6 %; MEAN CORPUSCULAR HEMOGLOBIN 28.5 pg (27.0-31.0); MEAN CORPUSCULAR HGB CONC 32.8 g/dL (32.0-36.0); MEAN CORPUSCULAR VOLUME 87.1 fL (80.0-94.0); MEAN PLATELET VOLUME 10.9 fL (7.4-11.4); MONOCYTES # (AUTO) 0.5 10^3/uL (0.0-1.0); MONOCYTES % (AUTO) 6.6 %; NEUTROPHILS # (AUTO) 4.3 10^3/uL (1.5-6.6); NEUTROPHILS % (AUTO) 63.4 %; PLT - PLATELET COUNT 153 10^3/uL (130-450); RED BLOOD COUNT 3.96 10^6/uL (4.70-6.10); RED CELL DISTRIBUTION WIDTH 14.2 % (12.0-15.0); WHITE BLOOD COUNT 6.9 x10^3/uL (4.8-10.8)
[2024-01-04 20:08] LABS: ALBUMIN 4.3 g/dL (3.2-5.5); BILIRUBIN,TOTAL 0.3 mg/dL (0.2-1.0); CALCIUM 9.7 mg/dL (8.5-10.3); POTASSIUM 3.3 mmol/L (3.5-4.5); TOTAL PROTEIN 6.5 g/dL (6.4-8.9)
--- NOTE | 2024-01-04 20:13 | CT Report ---
PROCEDURE: Abdomen/Pelvis WO INDICATIONS: R flank pain TECHNIQUE: A CT scan of the abdomen and pelvis was performed without the use of intravenous contrast. Images we re recorded and evaluated at appropriate window settings. Reformats: coronal and sagittal. For radiat ion dose reduction, the following was used: automated exposure control, adjustment of mA and/or kV ac cording to patient size. COMPARISON: CT abdomen and pelvis 09/18/2022. FINDINGS: Image quality: Diagnostic. Lower chest: Unremarkable. Liver: No contour-deforming mass. Simple appearing hepatic cyst is redemonstrated. Gallbladder: No radiopaque stones or wall thickening. Biliary tree: No intrahepatic or extrahepatic dilation, accounting for age. Spleen: No splenomegaly. Pancreas: No pancreatic ductal dilation. Adrenals: No adrenal nodule. Kidneys and ureters: Bilateral perinephric stranding. No hydronephrosis. No contour-deforming mass. Stomach, bowel and peritoneum: No gastric or small bowel dilation. No abnormal wall thickening. No pa thologic free fluid. Normal appendix. Lymph nodes: No central or retroperitoneal adenopathy. Vessels: No infrarenal aortic aneurysm. Atherosclerotic vascular calcifications. Aortobiiliac graft i n place, not well evaluated on this noncontrast exam. Reproductive organs: Unremarkable. Bladder: Possible mild urinary bladder wall thickening. No calcified bladder stones. Pelvic lymph nodes: No adenopathy by size criteria. Bones: No aggressive osseous abnormality. Other: Small bilateral fat-containing hernias. Small umbilical hernia containing a small knuckle of b owel without obstruction. Small supraumbilical hernia containing fat.. IMPRESSION: 1.No hydronephrosis or obstructing renal stone. 2.Bilateral perinephric stranding and possible mild urinary bladder wall thickening. Recommend correl ation with urinary analysis to evaluate for infection. Reviewed by: Jose Liu MD on 01/04/2024 8:12 PM PDT Approved by: Jose Liu MD on 01/04/2024 8:12 PM PDT Station ID: [id number]
[2024-01-04] MEDS: HYDROcod/ACETAM 5/325 MG TABLET PO STA (20:54)
== END 2024-01-04 21:01 | disposition home or self-care (01) ==
LOC: ED 18:59
DX: M54.50 Low back pain, unspecified (principal); I10 Essential (primary) hypertension; E78.00 Pure hypercholesterolemia, unspecified; I25.2 Old myocardial infarction; I49.3 Ventricular premature depolarization; J43.9 Emphysema, unspecified; G47.30 Sleep apnea, unspecified; N40.0 Benign prostatic hyperplasia without lower urinary tract symptoms; Z86.010 Personal history of colon polyps; Z87.442 Personal history of urinary calculi; Z79.82 Long term (current) use of aspirin; Z79.899 Other long term (current) drug therapy; F17.200 Nicotine dependence, unspecified, uncomplicated
CPT/HCPCS: 36415; 74176; 80053; 81003; 83690; 85025; 96372; 99283; 99284; A9270; 81001; 87086